=== PATIENT | female | born 1955 ===

== ENCOUNTER 2022-08-12 11:22 | Outpatient (CLI) | payer BC ==
[2022-08-12] MEDS ORDERED: Iopamidol 370 76% 100 ML VIAL ONE (13:32)
== END 2022-08-12 11:23 | disposition home or self-care (01) ==
LOC: CT 11:22
PROVIDERS: ATTEND Internal Medicine
DX: R10.31 Right lower quadrant pain (principal)
CPT/HCPCS: 74177; 82565; Q9967